=== PATIENT | male | born 1975 | race Caucasian/White ===

== ENCOUNTER 2022-04-10 10:44 | Inpatient (IN) | payer OTHER, SELFPAY ==
[2022-04-10] VITALS (13 sets, daily range): BP systolic 100–173; BP diastolic 68–96; PULSE 0–109; RESP 12–20; TEMP 36.6–37.2; O2SAT 92–97; BMI 29.5
--- NOTE | 2022-04-10 10:54 | ECG_ITS ---
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 Measurements Intervals [place] Rate: 107 P: 43 LA: 131 QRS: 2 QRSD: 130 T: 8 QT: 355 QTc: 474 Interpretive Statements SINUS TACHYCARDIA POSSIBLE LEFT ATRIAL ENLARGEMENT [-0.1mV P-WAVE IN V1/V2] RIGHT BUNDLE BRANCH BLOCK [120+ ms QRS DURATION, UPRIGHT V1, 40+ ms S IN I/aVL/V4/V5/V6] No previous ECG available for comparison Electronically Signed On 04-12-2022 6:28:34 CUSTOM BOOKBINDER by José Penn M.D. [email or web address] Information [employer] & Operations PvtCisivmagr[facility].[email or web address]/store/[id number]
--- NOTE | 2022-04-10 11:01 | W.ED.URI ---
HPI - URI/Sore Throat General: Chief Complaint: Upper Respiratory Infection Stated Complaint: Chest pains Time Seen by Provider: 04/10/22 11:01 History of Present Illness: Mr. Taylor is a 46-year-old gentleman with history of hyperlipidemia presenting to the emergency department due to chest and abdominal pain. He reports this past weekend having cough and GI symptoms however at approximately 1 AM was awoken from sleep with severe right lower chest and right upper quadrant abdominal pain. Since onset symptoms have been severe and constant. Was seen at another ER and chest x-ray was reportedly normal, patient tested positive for flu A, and discharged however symptoms are continued. Denies frequent similar episodes in the past. [place] like his flu symptoms were improved prior to onset of this. No other specific changes in health, exacerbating, or alleviating factors identified. Onset (ago): hour(s) Consistency: constant Severity: severe Context: other Associated symptoms: Reports no associated symptoms Review of Systems General: Reports: 10 or more systems reviewed and unremarkable except in HPI and below PFSH ED PFSH: Medical History HLD (hyperlipidemia) Surgical History No pertinent past surgical history Family History Father Hyperlipidemia Grandmother Hyperlipidemia Hypertension Myocardial infarct Denies family history of Diabetes CAD (coronary artery disease) Clotting disorder Dementia Chronic kidney disease (CKD) Lung disease Cancer Stroke Social History Smoking and tobacco status: never smoked Alcohol intake: never Adopted: No Caregiver/support person: No Lives independently: No Household members: spouse Marital status: service: No Current occupational status: employed Sexually active: Yes Current gender identity: Male Physical Exam Const: COMMON NORMALS: alert GENERAL APPEARANCE: cooperative, well developed, in distress (Discomfort due to pain) and ill appearing (Somewhat) HENMT: COMMON NORMALS: normocephalic and atraumatic HEAD & SCALP: normocephalic and atraumatic THROAT: posterior oropharynx normal Eye: COMMON NORMALS: conjunctivae normal CONJUNCTIVA: Yes conjunctivae normal SCLERA: sclerae normal Neck/C-Spine: COMMON NORMALS: supple GENERAL: Yes trachea midline Resp: COMMON NORMALS: clear to auscultation bilaterally EFFORT & INSPECTION: Yes able to speak in complete sentences AUSCULTATION: clear to auscultation bilaterally Cardio: COMMON NORMALS: regular rhythm RATE: tachycardic RHYTHM: regular rhythm GI: COMMON NORMALS: Soft to palpation PALPATION: Yes Soft to palpation, Yes Tenderness to palpation present (GI), No Guarding due to palpation present (GI) and No Rigid due to palpation Extremity: GENERAL: Yes normal exam except as noted and No edema Neuro: COMMON NORMALS: moves all extremities SENSORIUM/ORIENTATION: Yes alert and No Orientation impaired Psych: COMMON NORMALS: mental status grossly normal and Normal thought process present THOUGHT PROCESS: Normal thought process present Course Vital Signs: Vital signs: Vital Signs Temperature 99 F 04/12/22 10:59 Pulse Rate 99 04/12/22 10:59 Respiratory Rate 28 H 04/12/22 10:59 Blood Pressure 99/66 04/12/22 10:59 Pulse Oximetry 94 04/12/22 10:59 Oxygen Delivery Co thod 04/12/22 08:44 Oxygen Flow Rate 4 04/11/22 20:00 Fraction of Inspir ed Oxygen 40 04/12/22 08:44 MDM - URI/Sore Throat Medical Decision Making 46-year-old gentleman presenting with cough and chest pain. Somewhat ill on clinical appearance. EKG with sinus tachycardia, nonspecific ST segment abnormalities. No STEMI. Labs with no leukocytosis, hemoglobin normal. Metabolic panel with only mild derangement. Initial lactic acid is elevated with improvement on fluid resuscitation. Chest x-ray with right lower lobe infiltrate. Overall appearance x-rays somewhat unimpressive for patient's clinical symptoms including new oxygen requirement. D-dimer was ordered as patient could not be without diagnosis/PERC criteria and was elevated. Therefore CTA ordered. CTA with evidence of pneumonia and adjacent effusion, no PE. During ED course patient given analgesia, antiemetic, aspirin, fluids, antibiotics. Most likely cause of patient symptoms is pneumonia with new oxygen requirement. The results of ED evaluation were discussed with the patient including plan for admission due to requirement for level of care not available if discharged to prevent significant worsening/deterioration. Patient agreeable with plan. Discussed with hospitalist service who was agreeable to admit patient. Medical Records I reviewed the patient's medical records. Lab Data I reviewed the patient's lab results. 04/12/22 01:40 04/12/22 01:40 Radiology Impressions Chest CTA 04/10/22 11:50 IMPRESSION: 1. No evidence of pulmonary embolus. 2. Small RIGHT pleural effusion with patchy nodular infiltrates in the RIGHT lower lobe and RIGHT upper lobe suspicious for pneumonia. 3. No other acute findings. Chest Ultrasound 04/10/22 15:15 IMPRESSION: Very small RIGHT pleural effusion. Chest X-Ray 04/12/22 06:00 IMPRESSION: 1. Extensive, worsening opacity in the right chest likely reflecting consolidation and effusion. 2. Minimal left basilar opacity with probable small left pleural effusion. Laboratory Results WBC 10.0 10^3/uL (4.0-10.0) 04/10/22 11:05 RBC 5.25 10^6/uL (4.1-5.3) 04/10/22 11:05 Hgb 15.3 g/dL (11.7-16.6) 04/10/22 11:05 Hct 45.8 % (42.0-52.0) 04/10/22 11:05 MCV 87.2 fl (80-94) 04/10/22 11:05 MCH 29.1 pg (28.0-34.0) 04/10/22 11:05 MCHC 33.4 g/dL (30.0-36.0) 04/10/22 11:05 RDW 12.9 % (12.1-15.1) 04/10/22 11:05 Plt Count 259 10^3/cmm (130-400) 04/10/22 11:05 MPV 10.6 fL (7.4-10.4) H 04/10/22 11:05 Neut % (Auto) 81.7 % 04/10/22 11:05 Lymph % (Auto) 10.4 % 04/10/22 11:05 Van Zandt % (Auto) 7.6 % 04/10/22 11:05 Eos % (Auto) 0.0 % 04/10/22 11:05 Baso % (Auto) 0.2 % 04/10/22 11:05 Neut # (Auto) 8.18 10^3/uL (1.8-7.7) H 04/10/22 11:05 Lymph # (Auto) 1.0 10^3/uL (0.8-4.8) 04/10/22 11:05 [place] Zandt # (Auto) 0.8 10^3/uL (0.2-0.9) 04/10/22 11:05 Eos # (Auto) 0.0 10^3/uL (0.0-0.8) 04/10/22 11:05 Baso # (Auto) 0.0 10^3/uL (0.0-0.1) 04/10/22 11:05 Nucleated RBC % (auto) 0 % 04/10/22 11:05 Nucleated RBCs # 0.0 /100WBC 04/10/22 11:05 ESR 14 mm/hr (0-10) H 04/10/22 11:05 D-Dimer 1.02 ug/mIFEU (0-0.59) H 04/10/22 11:05 Sodium 138 mmol/L (136-145) 04/10/22 11:05 Potassium 4.2 mmol/L (3.5-5.1) 04/10/22 11:05 Chloride 99 mmol/L (98-107) 04/10/22 11:05 Carbon Dioxide 24 mmol/L (22-29) 04/10/22 11:05 Anion Gap 19.2 (5-19) H 04/10/22 11:05 BUN 15 mg/dL (6-20) 04/10/22 11:05 Creatinine 1.1 mg/dL (0.7-1.2) 04/10/22 11:05 GFR Calculation 71.4 mL/min (90-130) L 04/10/22 11:05 Glucose 133 mg/dL (65-115) H 04/10/22 11:05 Estimat Average Glucose 94 04/10/22 11:05 Hemoglobin A1c 4.9 % (4.0-6.0) 04/10/22 11:05 Calculated Osmolality 289 mOsm/kg (285-295) 04/10/22 11:05 Lactic Acid 3.4 mmol/L (0.5-2.2) H 04/10/22 11:05 Lactic Acid (Sepsis) 2.6 mmol/L (0.5-2.2) H 04/10/22 16:30 Calcium 8.7 mg/dL (8.5-10.5) 04/10/22 11:05 Total Bilirubin 0.7 mg/dL (0.15-1.2) 04/10/22 11:05 AST 22 U/L (0-40) 04/10/22 11:05 ALT 23 U/L (0-41) 04/10/22 11:05 Alkaline Phosphatase 86 U/L (40-130) 04/10/22 11:05 Creatine Kinase 123 U/L (39-308) 04/10/22 11:05 Troponin T Baseline 8 ng/L (0-15) 04/10/22 11:05 Troponin T 120 Minute 8.47 ng/L (0-15) 04/10/22 13:12 Delta Troponin T 0.10 ABS# (0-10) 04/10/22 13:12 Troponin T Hi Sens 6Hr 10.02 ng/L (0-15) 04/10/22 16:30 Troponin T Hi Sens 6Hr Delta 2.02 ng/L (0-12) 04/10/22 16:30 NT-Pro-B Natriuret Pep 461 pg/mL (0-125) H 04/10/22 11:05 Total Protein 6.9 g/dL (6.6-8.7) 04/10/22 11:05 Albumin 4.2 g/dL (3.5-5.2) 04/10/22 11:05 Globulin 2.7 g/dL (1.3-4.6) 04/10/22 11:05 Lipase 22 U/L (13-60) 04/10/22 11:05 Procalcitonin 5.12 ng/mL (0-0.5) H 04/10/22 11:05 TSH 0.87 uIU/mL (0.27-4.20) 04/10/22 11:05 Urine Color Yellow (Yellow) 04/10/22 13:30 Urine Appearance Clear (CLEAR) 04/10/22 13:30 Urine pH 6.5 (5-7) 04/10/22 13:30 Ur Specific Pyatt 1.005 (1.005-1.030) 04/10/22 13:30 Urine Protein 1+ (Negative) H 04/10/22 13:30 Urine Glucose (UA) Norm (Normal) 04/10/22 13:30 Urine Ketones 1+ (Negative) H 04/10/22 13:30 Urine Blood Trace (Negative) H 04/10/22 13:30 Urine Nitrate Negative (Negative) 04/10/22 13:30 Urine Bilirubin 1+ (Negative) H 04/10/22 13:30 Urine Urobilinogen Norm mg/dL (Negative) 04/10/22 13:30 Ur Leukocyte Esterase Trace (Negative) H 04/10/22 13:30 Urine RBC 0-4 /hpf (0-2) H 04/10/22 13:30 Urine WBC 0-4 /hpf (0-5) H 04/10/22 13:30 Ur Squamous Epith Cells 0-4 /hpf (0-5) H 04/10/22 13:30 Amorphous Sediment Not Reportable 04/10/22 13:30 Urine Bacteria None /hpf (NONE) 04/10/22 13:30 Coronavirus 229E (PCR) Not detected (NOT DETECT) 04/10/22 13:50 Influenza Type A Ag positive (Negative) 04/10/22 14:45 Influenza Type B Ag negative (Negative) 04/10/22 14:45 SARS-CoV-2 (PCR) Not detected (NOT DETECT) 04/10/22 13:50 Discharge Plan Discharge Patient Disposition: Admitted As Inpatient Admit Provider: Homero Cobos Clinical Impression: Pneumonia, Hypoxia, Parapneumonic effusion, Influenza A, Abnormal ECG Condition: Stable Coding Level of Care Code ED Sole Sewer Hand for Chg Fwd Exam Comprehensive
--- NOTE | 2022-04-10 11:08 | XR_ITS ---
WS: [id number] Exam: XR chest 1V portable [id number] Date/Time of Exam: 04/10/2022 11:14 AM Reason For Exam: RL cp No prior exams. There is infiltrate and atelectasis in the right lower lobe. Remaining lung zones are clear. No obvio us pleural effusion. Unremarkable cardiomediastinal silhouette. Bony elements are intact. XR/XR chest 1V portable [id number] IMPRESSION: 1. Right lower lobe infiltrate and atelectasis.
[2022-04-10 11:16] LABS: Basophils % 0.2 %; Hematocrit 45.8 % (42.0-52.0); Hemoglobin 15.3 g/dL (11.7-16.6); Lymphocytes % 10.4 %; Mean Corpuscular HGB Conc 33.4 g/dL (30.0-36.0); Mean Corpuscular Hemoglobin 29.1 pg (28.0-34.0); Mean Corpuscular Volume 87.2 fl (80-94); Mean Platelet Volume 10.6 fL (7.4-10.4); Monocytes # 0.8 10^3/uL (0.2-0.9); Monocytes % 7.6 %; Neutrophils # 8.18 10^3/uL (1.8-7.7); Neutrophils % 81.7 %; Nucleated Red Blood Cells % 0 %; Platelet Count 259 10^3/cmm (130-400); Red Blood Count 5.25 10^6/uL (4.1-5.3); Red Cell Distribution Width 12.9 % (12.1-15.1)
[2022-04-10] MEDS: aspirin 81 mg Chew Tablet 324 MG PO (11:18)
[2022-04-10] MEDS: ondansetron 2 mg/ML SDV 2 mL 4 MG IVP (11:19)
[2022-04-10] MEDS: morphine 4 mg/mL SDV 1 mL IVP ×2 (11:19→14:35)
[2022-04-10] MEDS: sodium chloride 0.9% 1,000 ML 999 ML IV (11:23)
[2022-04-10 11:28] LABS: Slide Review Slide Review Perform
[2022-04-10 11:36] LABS: D Dimer 1.02 ug/mIFEU (0-0.59)
[2022-04-10 11:40] LABS: Troponin(5th) Baseline 8 ng/L (0-15)
[2022-04-10 11:43] LABS: Alanine Aminotransferase 23 U/L (0-41); Albumin Level 4.2 g/dL (3.5-5.2); Alkaline Phosphatase 86 U/L (40-130); Anion Gap 19.2 (5-19); Aspartate Amino Transferase 22 U/L (0-40); Blood Urea Nitrogen 15 mg/dL (6-20); Calcium 8.7 mg/dL (8.5-10.5); Carbon Dioxide 24 mmol/L (22-29); Chloride 99 mmol/L (98-107); Globulin 2.7 g/dL (1.3-4.6); Glomerular Filtration Rate 71.4 mL/min (90-130); Glucose 133 mg/dL (65-115); Lipase 22 U/L (13-60); Osmolality Calculated 289 mOsm/kg (285-295); Potassium 4.2 mmol/L (3.5-5.1); Sodium 138 mmol/L (136-145); Total Bilirubin 0.7 mg/dL (0.15-1.2); Total Protein 6.9 g/dL (6.6-8.7)
--- NOTE | 2022-04-10 11:50 | CT_ITS ---
WS: [id number] CTA OF THE CHEST WITH PULMONARY EMBOLISM PROTOCOL TECHNIQUE: High-resolution contrast enhanced CTA of the chest with coronal and sagittal reformatted i mages with pulmonary embolism protocol. MIP images are also reviewed. CLINICAL INFORMATION: Right lower CP, elevated ddimer COMPARISON: None. DLP: 392.[address] scans at [facility] use at least one of these dose optimization techniques: automated e xposure control; mA and/or kV adjustment per patient size (includes targeted exams where dose is matc hed to clinical indication); or iterative reconstruction. FINDINGS: Small RIGHT pleural effusion. Compressive atelectasis in the RIGHT lower lobe. Subsegmental atelectas is in both lung bases. Patchy nodular groundglass infiltrates in the RIGHT lower lobe and RIGHT upper lobe along the hilum suspicious for pneumonia. LEFT upper lobe is well aerated. Proximal main pulmonary arteries are normal. Normal segmental and subsegmental pulmonary arteries. No evidence of pulmonary embolus. Normal caliber thoracic aorta. No mediastinal or hilar lymphadenopathy. Adrenal glands are normal. Small esophageal hiatal hernia. CT/CT angio chest PE protcl [id number] IMPRESSION: 1. No evidence of pulmonary embolus. 2. Small RIGHT pleural effusion with patchy nodular infiltrates in the RIGHT l ower lobe and RIGHT upper lobe suspicious for pneumonia. 3. No other acute findings.
[2022-04-10 12:10] LABS: Procalcitonin 5.12 ng/mL (0-0.5)
[2022-04-10] MEDS: iohexol 350 mg/mL 500 mL Btl (per mL) IV (12:29)
[2022-04-10] MEDS: acetaminophen 500 mg Tablet 1000 MG PO (12:30)
[2022-04-10] MEDS: ketorolac 30 mg/mL INJ 15 MG IVP (12:31)
--- NOTE | 2022-04-10 12:43 | ECG_ITS ---
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 Measurements Intervals [place] Rate: 86 P: 43 W[place]: 142 QRS: 21 QRSD: 135 T: 12 QT: 373 QTc: 446 Interpretive Statements SINUS RHYTHM RIGHT BUNDLE BRANCH BLOCK [120+ ms QRS DURATION, UPRIGHT V1, 40+ ms S IN I/aVL/V4/V5/V6] Compared to ECG 04/10/2022 10:54:48 Sinus tachycardia no longer present Electronically Signed On 04-12-2022 6:35:42 GOSPEL SINGER by José Penn M.D. [id number]
[2022-04-10 13:46] LABS: Troponin 5 2HR 8.47 ng/L (0-15)
[2022-04-10] MEDS: cefTRIAXone 1,000 MG in sodium chloride 0.9% (plus) 50 ML 100 MG IV (14:18)
[2022-04-10] MEDS: doxycycline 100 MG in sodium chloride 0.9% (plus) 100 ML IV (14:40)
[2022-04-10 14:50] LABS: Add Urine Microscopic? YES; Bilirubin Urine 1+ (Negative); Blood Urine Trace (Negative); Glucose Urine UA Norm (Normal); Ketones Urine 1+ (Negative); Leukocyte Esterase Urine Trace (Negative); Nitrate Urine Negative (Negative); Protein Urine 1+ (Negative); Specific Gravity, Urine 1.005 (1.005-1.030); Urine Appearance Clear (CLEAR); Urine Color Yellow (Yellow); Urobilinogen Urine Norm (Negative); pH Urine 6.5 (5-7)
[2022-04-10 14:51] LABS: Add Urine Culture? No; RBC Urine 0-4 /hpf (0-2); Squamous Epithelial Cell Urine 0-4 /hpf (0-5); WBC Urine 0-4 /hpf (0-5)
[2022-04-10 15:03] LABS: Influenza A by IFA positive (Negative); Influenza B by IFA negative (Negative)
--- NOTE | 2022-04-10 15:15 | US_ITS ---
WS: [id number] Ultrasound chest. HISTORY: Pleural effusion. Very small RIGHT pleural effusion. There are a few low-level echoes present suggesting internal debri s. US/US chest [id number] IMPRESSION: Very small RIGHT pleural effusion.
--- NOTE | 2022-04-10 15:17 | PM.HP ---
Providers/Chief Complaint Primary Care Provider: Kasia Anderson MD Chief Complaint: Chest pains History of Present Illness Mian Taylor is a 46 year old male with a past medical history of hyperlipidemia, who presents to [facility] due to fatigue, malaise, cough since Friday. 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 He presented to another ER where he tested positive for flu a discharged without any medications. However he continued to have shortness of breath, chest pain, pleurisy, pain with taking deep breath in, fatigue, malaise, poor appetite. Review of Systems Const: Reports: fever(s), chills, body aches, fatigue and malaise Card: Reports: chest pain Resp: Reports: dyspnea and non-productive cough Medications/Allergies Home Medications Medication Instructions Recorded Confirmed Last Taken Type rosuvastatin 10 mg tablet 10 mg PO QPM 04/10/22 04/10/22 04/09/22 History Allergies Allergy/AdvReac Type Severity Reaction Status Date / Time No Known Allergies Allergy Verified 04/10/22 11:28 PFSH Acute PFSH: Medical History HLD (hyperlipidemia) Surgical History No pertinent past surgical history Family History Father Hyperlipidemia Grandmother Hyperlipidemia Hypertension Myocardial infarct Denies family history of Diabetes CAD (coronary artery disease) Clotting disorder Dementia Chronic kidney disease (CKD) Lung disease Cancer Stroke Social History Smoking and tobacco status: never smoked Alcohol intake: never Adopted: No Caregiver/support person: No Lives independently: No Household members: spouse Marital status: service: No Current occupational status: employed Sexually active: Yes Current gender identity: Male Vitals/I&O/Wt Last Vital Signs Temp 98.3 F 04/10/22 14:52 Pulse 88 04/10/22 13:35 Resp 18 04/10/22 14:35 BP 114/88 04/10/22 13:46 Pulse Ox 92 04/10/22 14:35 O2 Del Method 04/10/22 13:46 O2 Flow Rate 1 04/10/22 13:46 04/10/22 04/10/22 04/10/22 06:59 14:59 22:59 Intake Total 1000 / 1000 50 / 1050 Balance 1000 / 1000 50 / 1050 Weight last 48 hrs Weight 90.718 kg Physical Exam Const: COMMON NORMALS: no acute distress and patient oriented x3 HENMT: COMMON NORMALS: normocephalic HEAD & SCALP: normocephalic Eye: COMMON NORMALS: Equal, round and reactive pupils present and EOMs intact bilaterally Neck/C-Spine: COMMON NORMALS: no JVD Resp: COMMON NORMALS: normal respiratory effort, No retractions, No use of accessory muscles and clear to auscultation bilaterally AUSCULTATION: crackles and wheezes Cardio: COMMON NORMALS: no JVD, regular rate, regular rhythm, S1 normal heart sound present and S2 normal heart sound present RATE: regular rate RHYTHM: regular rhythm HEART SOUNDS: S1 normal heart sound present and S2 normal heart sound present GI: COMMON NORMALS: Normal to inspection, nondistended, normoactive bowel sounds present, Soft to palpation, non-tender, No hepatosplenomegaly present, no masses and no bruits PALPATION: Yes Soft to palpation and Yes No hepatosplenomegaly present Extremity: COMMON NORMALS: capillary refill normal, no clubbing, cyanosis or edema, no calf tenderness and no pedal edema Neuro: COMMON NORMALS: patient oriented x3, CN's II-XII intact bilaterally, moves all extremities and no focal motor deficits Psych: COMMON NORMALS: mental status grossly normal Data 04/10/22 11:05 04/10/22 11:05 Micro: Microbiology 04/10/22 14:26 Blood Culture - Preliminary Blood SPECIMEN COLLECTED 04/10/22 14:12 Blood Culture - Preliminary Blood SPECIMEN COLLECTED A&P Assessment and plan (1) Parapneumonic effusion: (2) Pneumonia: (3) Hypoxia: (4) Influenza A: (5) Pleurisy with effusion: Plan Pneumonia, pneumonic effusion, influenza a -ct angio of the chest Small RIGHT pleural effusion. Compressive atelectasis in the RIGHT lower lobe. Subsegmental atelectasis in both lung bases. Patchy nodular groundglass infiltrates in the RIGHT lower lobe and RIGHT upper lobe along the hilum suspicious for pneumonia. LEFT upper lobe is well aerated. PLAN: -admit to med surg -start tamiflu -Rocephin and azithromycin -blood culutre, sputum culture, bacterial antigen -duoneb treatment -monitor respiratory status -incentive spriometer and flutter valve -full code -lovenox for dvt ppx Attestations Medical Necessity Statement*: patient requires hospitalization for influenzae a, pneumonia, parapneumonic effusion, pleurisy, inpatient, greater than 2 midnights Coding Level of Care Code Acute Associate Director Of Biostatistics for [facility] Diagnoses Parapneumonic effusion J18.9; J91.8 Pneumonia J18.9 Hypoxia R09.02 Influenza A J10.1 Pleurisy with effusion J90
[2022-04-10 15:25] LABS: Erythrocyte Sedimentation Rate 14 mm/hr (0-10)
[2022-04-10 15:40] LABS: Lactic Sepsis W/Reflex 3.4 mmol/L (0.5-2.2)
[2022-04-10 15:49] LABS: Creatine Phosphokinase 123 U/L (39-308); NT Pro B Type Natriuretic Pept 461 pg/mL (0-125)
[2022-04-10 16:09] LABS: Adenovirus Not Detected (NOT DETECT); Chlamydia Pneumoniae Not Detected (NOT DETECT); Coronavirus 229E,HKU1,NL63,OC4 Not Detected (NOT DETECT); Human Metapneumovirus Not Detected (NOT DETECT); Human Rhinovirus/Enterovirus Not Detected (NOT DETECT); Influenza A Not Detected (NOT DETECT); Influenza A H1 Not Detected (NOT DETECT); Influenza A H1-2009 Not Detected (NOT DETECT); Influenza A H3 Not Detected (NOT DETECT); Influenza B Not Detected (NOT DETECT); Mycoplasma Pneumoniae Not Detected (NOT DETECT); Parainfluenza Virus Type 1 Not Detected (NOT DETECT); Parainfluenza Virus Type 2 Not Detected (NOT DETECT); Parainfluenza Virus Type 3 Not Detected (NOT DETECT); Parainfluenza Virus Type 4 Not Detected (NOT DETECT); Respiratory Syncytial Virus A Not Detected (NOT DETECT); Respiratory Syncytial Virus B Not Detected (NOT DETECT); SARS-COV-2 Not Detected (NOT DETECT)
[2022-04-10] MEDS: sodium chloride 0.9% 1,000 ML 50 ML IV (17:06)
[2022-04-10] MEDS: azithromycin 500 MG in sodium chloride 0.9% 250 ML 250 MG IV (17:06)
[2022-04-10] MEDS: enoxaparin 40 mg/0.4 mL Syringe SUBCUT (17:07)
[2022-04-10] MEDS: oseltamivir phosphate 75 mg Capsule PO (17:07)
[2022-04-10] MEDS: pantoprazole 40 mg SDV IVP (17:07)
[2022-04-10 17:10] LABS: Troponin 5 6HR 10.02 ng/L (0-15)
[2022-04-10 17:13] LABS: Reflex Lactate Order REFLEX LACTIC ORDERD
[2022-04-10 17:36] LABS: Troponin 5 6HR Delta 2.02 ng/L (0-12)
[2022-04-10 17:40] LABS: Lactic Acid level (Lactate) 2.6 mmol/L (0.5-2.2)
[2022-04-10 18:12] LABS: Thyroid Stimulating Hormone 0.87 uIU/mL (0.27-4.20)
--- NOTE | 2022-04-10 18:25 | ECG_ITS ---
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 Measurements Intervals [place] Rate: 95 P: 43 AK: 146 QRS: 20 QRSD: 132 T: 26 QT: 340 QTc: 428 Interpretive Statements SINUS RHYTHM RIGHT BUNDLE BRANCH BLOCK [120+ ms QRS DURATION, UPRIGHT V1, 40+ ms S IN I/aVL/V4/V5/V6] Compared to ECG 04/10/2022 12:43:21 No significant changes Electronically Signed On 04-12-2022 6:33:49 DAIRY EQUIPMENT SPECIALIST by José Penn M.D. [id number]
[2022-04-10 18:51] LABS: Estmated Average Glucose 94; Hemoglobin A1C 4.9 % (4.0-6.0)
[2022-04-10] MEDS: ipratropium-albuterol 3 mL Neb INHALATION (20:53)
[2022-04-10] MEDS: oxyCODONE-APAP 5-325 mg Tablet 1 TAB PO (21:44)
[2022-04-11] VITALS (24 sets, daily range): BP systolic 103–128; BP diastolic 68–83; PULSE 98–115; RESP 16–30; TEMP 36.8–38.6; O2SAT 90–97; BMI 29.7
[2022-04-11] MEDS: acetaminophen 325 mg Tablet 650 MG PO (04:34)
[2022-04-11] MEDS: oseltamivir phosphate 75 mg Capsule PO ×2 (04:35→17:46)
[2022-04-11 05:45] LABS: Basophils % 0.3 %; Hematocrit 40.8 % (42.0-52.0); Hemoglobin 13.8 g/dL (11.7-16.6); Lymphocytes # 0.9 10^3/uL (0.8-4.8); Lymphocytes % 23.2 %; Mean Corpuscular HGB Conc 33.8 g/dL (30.0-36.0); Mean Corpuscular Hemoglobin 29.6 pg (28.0-34.0); Mean Corpuscular Volume 87.4 fl (80-94); Mean Platelet Volume 11.1 fL (7.4-10.4); Monocytes # 0.3 10^3/uL (0.2-0.9); Monocytes % 8.9 %; Neutrophils # 2.48 10^3/uL (1.8-7.7); Neutrophils % 64.5 %; Nucleated Red Blood Cells % 0 %; Platelet Count 190 10^3/cmm (130-400); Red Blood Count 4.67 10^6/uL (4.1-5.3); Red Cell Distribution Width 13.3 % (12.1-15.1); White Blood Count 3.8 10^3/uL (4.0-10.0)
[2022-04-11 06:09] LABS: Blood Urea Nitrogen 17 mg/dL (6-20); Calcium 8.2 mg/dL (8.5-10.5); Carbon Dioxide 22 mmol/L (22-29); Chloride 98 mmol/L (98-107); Glomerular Filtration Rate 71.4 mL/min (90-130); Glucose 103 mg/dL (65-115); Osmolality Calculated 278 mOsm/kg (285-295); Sodium 133 mmol/L (136-145)
[2022-04-11] MEDS: ipratropium-albuterol 3 mL Neb INHALATION ×5 (08:14→23:13)
--- NOTE | 2022-04-11 08:20 | ECG_ITS ---
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 Measurements Intervals [place] Rate: 96 P: 47 CA: 144 QRS: 13 QRSD: 137 T: 18 QT: 346 QTc: 438 Interpretive Statements SINUS RHYTHM POSSIBLE LEFT ATRIAL ENLARGEMENT [-0.1mV P-WAVE IN V1/V2] RIGHT BUNDLE BRANCH BLOCK [120+ ms QRS DURATION, UPRIGHT V1, 40+ ms S IN I/aVL/V4/V5/V6] Compared to ECG 04/10/2022 18:25:45 No significant changes Electronically Signed On 04-12-2022 6:26:50 HEATING AND VENTILATING WORKER by José Penn M.D. [id number]
--- NOTE | 2022-04-11 10:03 | P.PN_ITS ---
Subjective Subjective: Patient was seen this morning, he feels a lot better, he did have 1 fever overnight, still has a cough, still has fatigue, malaise, his right pleuritic chest pain has significantly improved, still some pleuritic-like pain with coughing but overall improved, no more pulling sensation Vitals/I&O/Wt Last Vital Signs Temp 98.4 F 04/11/22 07:56 Pulse 98 04/11/22 08:20 Resp 18 04/11/22 08:18 BP 110/72 04/11/22 07:56 Pulse Ox 92 04/11/22 08:18 O2 Del Method 04/11/22 08:18 O2 Flow Rate 2 04/11/22 08:18 04/10/22 04/11/22 04/11/22 22:59 06:59 14:59 Intake Total 1140 / 2140 120 / 120 Output Total 250 / 250 Balance 1140 / 2140 -250 / 1890 120 / 120 Weight last 48 hrs Weight 90.718 kg Weight 90.718 kg Physical Exam Const: COMMON NORMALS: no acute distress and patient oriented x3 Resp: COMMON NORMALS: normal respiratory effort, No retractions and No use of accessory muscles AUSCULTATION: wheezes Cardio: COMMON NORMALS: regular rate, regular rhythm, S1 normal heart sound present and S2 normal heart sound present RATE: regular rate RHYTHM: regular rhythm HEART SOUNDS: S1 normal heart sound present and S2 normal heart sound present GI: COMMON NORMALS: Normal to inspection, nondistended, normoactive bowel sounds present and non-tender Extremity: COMMON NORMALS: no pedal edema Neuro: COMMON NORMALS: patient oriented x3 Psych: COMMON NORMALS: mental status grossly normal Data 04/11/22 05:25 04/11/22 05:25 Micro: Microbiology 04/10/22 13:30 Bacterial Antigens - Final Urine,Clean Catch 04/10/22 14:26 Blood Culture - Preliminary Blood SPECIMEN COLLECTED 04/10/22 14:12 Blood Culture - Preliminary Blood SPECIMEN COLLECTED A&P Assessment and plan (1) Parapneumonic effusion: (2) Pneumonia: (3) Hypoxia: (4) Influenza A: (5) Pleurisy with effusion: Plan Pneumonia, pneumonic effusion, influenza a -ct angio of the chest Small RIGHT pleural effusion. Compressive atelectasis in the RIGHT lower lobe. Subsegmental atelectasis in both lung bases. Patchy nodular groundglass infiltrates in the RIGHT lower lobe and RIGHT upper lobe along the hilum suspicious for pneumonia. LEFT upper lobe is well aerated. PLAN: -admit to med surg -start tamiflu -Rocephin and azithromycin -blood culutre, sputum culture, bacterial antigen -duoneb treatment -monitor respiratory status -incentive spriometer and flutter valve -Ultrasound of chest shows right pleural effusion very minimal, few low-level echoes suggesting internal debris, however patient has clinical history improved, his pleurisy on the right has improved. So we will monitor. I advised patient that we will have to continue to monitor this, but it is fairly unlikely to be an empyema. But if he continues to have pain or if it comes back he has fevers or changes in his status then we will need to do an ultrasound and pursue sampling as an empyema will need to be drained. He boisterously, all questions answered -full code -lovenox for dvt ppx Attestations Medical Necessity Statement*: Patient requires hospitalization, for influenza A, pneumonia Coding Level of Care Code Acute Roller Print Tender for [facility] Diagnoses Parapneumonic effusion J18.9; J91.8 Pneumonia J18.9 Hypoxia R09.02 Influenza A J10.1 Pleurisy with effusion J90
--- NOTE | 2022-04-11 13:00 | PC.CHAP ---
Pastoral Care Encounter/Spiritual Assessment Type of Contact [] Declined pinsetter mechanic automatic visit [] Patient/Family/Request visit [] Outpatient visit [] Follow-up visit [] Physician referral [] Code/Alert [x] Routine visit [] Staff referral [] Actively dying [] Patient sleeping [] Family support [] [] Out of room [] Palliative care [] [x] Receiving care in room [] Pre-surgical visit [] Trauma [] Long length of stay [] ICU visit [x] Other: Isolation Relational/Emotional Strength [] Patient feels connected with others/family/visitors/staff [] Distress [] Loneliness/isolation [] Abandonment Spirituality of Patient [] Person of Lupe [] Attends Muslim of their Lupe [] Believes in Prayer [] Reads Bible or Mosque materials [] There are Spiritual issues to be addressed Miter Grinder Operator Interventions [] Prayer [] Active listening [] Non-anxious presence [] Spiritual/emotional support [] Crisis/trauma care [] Spiritual counseling [] Bereavement support [] Provided bereavement packet [] Provided Bible/devotional materials [] Provided toy/stuffed animal, coloring book to patient or family member [] Provided Communion [] Anointing/[place] [] Salvation [] Completed spiritual assessment [] Other: Impact on Illness or Injury [] Angry [] Fearful [] Anxious [] Often cries [] Exhaustion [] Unable to work [] Unable to attend mosque [] Unable to walk/stand [] Unable to read [] Unable to drive [] Unable to eat/drink [] Unable to sleep [] Unable to be with family [] Patient intubated [] Other: Summary Isolation Time spent with patient 5 mins
[2022-04-11] MEDS: cefTRIAXone 1,000 MG in sodium chloride 0.9% (plus) 50 ML 100 MG IV (15:31)
[2022-04-11] MEDS: sodium chloride 0.9% 1,000 ML 50 ML IV ×2 (15:31→22:12)
[2022-04-11] MEDS: oxyCODONE-APAP 5-325 mg Tablet 1 TAB PO (15:59)
[2022-04-11] MEDS: enoxaparin 40 mg/0.4 mL Syringe SUBCUT (17:01)
[2022-04-11] MEDS: pantoprazole 40 mg SDV IVP (17:01)
[2022-04-11] MEDS: azithromycin 500 MG in sodium chloride 0.9% 250 ML 250 MG IV (17:02)
--- NOTE | 2022-04-11 20:36 | XRR_ITS ---
PROCEDURE INFORMATION: Exam: XR Chest Exam date and time: 04/11/2022 8:46 PM Age: 46 years old Clinical indication: Fever and shortness of breath; Additional info: Absent breath sounds right TECHNIQUE: Imaging protocol: Radiologic exam of the chest. Views: 1 view. COMPARISON: CR XR chest 1V portable [id number] 04/10/2022 12:23 PM FINDINGS: Lungs: Increasing compressive atelectasis in the right upper lobe and to a greater extent the right middle and lower lobes, underlying pneumonia cannot be ruled out. There is also increasing atelectasis/pneumonia in the left lower lobe. Pleural spaces: Large right pleural effusion, increased in size. No pneumothorax. Heart/Mediastinum: Stable mild enlargement of the cardiac silhouette. Bones/joints: Unremarkable for age. XR/XR chest 1V portable [id number] IMPRESSION: 1. Large right pleural effusion, increased in size. 2. Increasing compressive atelectasis in the right upper lobe and to a greater extent the right middle and lower lobes, underlying pneumonia cannot be ruled out. There is also increasing atelectasis/pneumonia in the left lower lobe. Recommend followup chest imaging to insure resolution of these findings. 3. Incidental/nonacute findings are listed in the report.
[2022-04-11 21:12] LABS: ABG PCO2 33.1 mmHg (35-45); ABG PH Result 7.47 (7.35-7.45); Alveolar-Arterial Oxygen Gradi 3.9 mmHg (5-10); Arterial Blood Gas Hematocrit 42.9 % (42-52); Base Excess ABG 1.1 mmol/L (-2.0-2.0); Blood Gas Allen Test Pos; Blood Gas Operator Identificat JB; Blood Gas Sample Site Radial, right; Blood Gas Sample Type Arterial; Carboxyhemoglobin 0.9 %THgb (0.4-20.1); HCO3 ABG 24.1 mmol/L (22-26); HGB O2 Sat 95.9 % (95-100); Ionized Calcium Level - ABG 1.1 mmol/L (1.1-1.4); Methemoglobin 0.6 % (0.4-1.5); Oxygen Device NC; Oxygen Saturation ABG 97.4; PO2 ABG 79.5 mmHg (80.0-100.0); Potassium Level - ABG 3.8 mmol/L (3.5-5.0)
--- NOTE | 2022-04-11 22:32 | PC.PHAR ---
Pharmacokinetic dosing service Date: 04/11/22 Time: 2229 Objective: Patient: Mian Taylor Floor: ICU-4 Age: 46 yo Serum creatinine: 1.1 mg/dL Height: 69.0 Inches Weight (kg): 90.718 Diagnosis: Relevant medical/social history: Cultures and sensitivities: Other labs: Assessment: IBW (kg): 70.70 Dosing wt(kg): 90.718 Estimated Creatinine clearance (ml/min): 82.1 CRCL method: Cockcroft and Gault using ibw(default). Drug selected: Vancomycin Loading dose (mg): 0 Vd (liters): 81.6 (factor used: 0.9 L/kg) Sampson (hr-1): 0.073 Half life (hrs): 9.50 Recommended dose: 1500 mg Interval: 12 hrs Infusion time (hrs): 1.5 Predicted peak (mcg/mL): 29.8 Predicted trough (mcg/mL): 13.85 Total body weight is being used for vancomycin dosing. Renal function is stable [ ] /unstable [ ] Recommendations: Give Vancomycin 1500 mg q 12 hrs with an expected Cpeak of 29.8 mcg/ml and an expected Ctrough of 13.85 mcg/ml Renal dosing of other antibiotics (review renal dosing of other medications and list guidelines here): Thank you for the consult, will continue to follow. Signature: Jayla Cooper [facility]
[2022-04-11] MEDS: vancomycin 1,500 MG/300 ML PIGGYBACK 200 MG IV (23:11)
[2022-04-11] MEDS: acetylcysteine 200 mg/mL SDV 4 mL INHALATION (23:13)
[2022-04-12] VITALS (30 sets, daily range): BP systolic 99–119; BP diastolic 66–85; PULSE 91–113; RESP 15–38; TEMP 37.2–37.9; O2SAT 93–98
[2022-04-12 01:49] LABS: Basophils % 0.1 %; Hematocrit 40.1 % (42.0-52.0); Lymphocytes # 1.2 10^3/uL (0.8-4.8); Lymphocytes % 8.4 %; Mean Corpuscular HGB Conc 32.4 g/dL (30.0-36.0); Mean Corpuscular Volume 89.5 fl (80-94); Monocytes # 0.7 10^3/uL (0.2-0.9); Monocytes % 4.6 %; Neutrophils # 12.45 10^3/uL (1.8-7.7); Neutrophils % 86.6 %; Nucleated Red Blood Cells % 0 %; Platelet Count 179 10^3/cmm (130-400); Red Blood Count 4.48 10^6/uL (4.1-5.3); Red Cell Distribution Width 13.2 % (12.1-15.1); White Blood Count 14.4 10^3/uL (4.0-10.0)
[2022-04-12 02:05] LABS: INR 1.15 (0.8-1.2)
[2022-04-12 02:14] LABS: Anion Gap 16.4 (5-19); Blood Urea Nitrogen 22 mg/dL (6-20); Calcium 8.5 mg/dL (8.5-10.5); Carbon Dioxide 25 mmol/L (22-29); Chloride 96 mmol/L (98-107); Creatinine Clr Calc Pharmacy 91.6385; Glomerular Filtration Rate 71.4 mL/min (90-130); Glucose 111 mg/dL (65-115); Osmolality Calculated 280 mOsm/kg (285-295); Potassium 4.4 mmol/L (3.5-5.1); Sodium 133 mmol/L (136-145)
[2022-04-12 02:20] LABS: Procalcitonin 6.36 ng/mL (0-0.5)
[2022-04-12 02:33] LABS: C Reactive Protein 432.2 mg/L (0.0-4.9)
[2022-04-12] MEDS: oxyCODONE-APAP 5-325 mg Tablet 1 TAB PO ×2 (03:06→08:05)
[2022-04-12] MEDS: ipratropium-albuterol 3 mL Neb INHALATION ×2 (03:21→08:41)
[2022-04-12] MEDS: acetylcysteine 200 mg/mL SDV 4 mL INHALATION ×2 (03:21→08:41)
[2022-04-12] MEDS: oseltamivir phosphate 75 mg Capsule PO (04:12)
--- NOTE | 2022-04-12 06:00 | XRR_ITS ---
PROCEDURE INFORMATION: Exam: XR Chest Exam date and time: 04/12/2022 6:44 AM Age: 46 years old Clinical indication: Dyspnea. Follow up mucus plugging TECHNIQUE: Imaging protocol: Radiologic exam of the chest. Views: 1 view. COMPARISON: CR (CHEST, ) 04/11/2022 8:46 PM FINDINGS: Lungs: Extensive, worsening opacity in the right chest likely reflecting consolidation and effusion. Pleural spaces: Minimal left basilar opacity with probable small left pleural effusion. No pleural effusion. No pneumothorax. Heart/Mediastinum: The cardiac silhouette is unchanged. No gross evidence of pneumomediastinum. Bones/joints: No gross fracture. XR/XR chest 1V portable [id number] IMPRESSION: 1. Extensive, worsening opacity in the right chest likely reflecting consolidation and effusion. 2. Minimal left basilar opacity with probable small left pleural effusion.
--- NOTE | 2022-04-12 07:57 | P.TS_ITS ---
Transfer Summary Providers Date of Admission: 04/10/22 13:40 Date of Discharge/Transfer: 04/12/22 Attending Provider at Admission: Homero Cobos MD Attending Provider at Transfer: Homero Cobos MD Primary Care Provider: Kasia Anderson MD Transfer Plans: Anticipated date of transfer: 04/12/22 . Diagnoses at Discharge Discharge Diagnosis (1) Parapneumonic effusion: Status: Acute (2) Pneumonia: Status: Acute (3) Hypoxia: Status: Acute (4) Influenza A: Status: Acute (5) Pleurisy with effusion: Status: Acute Reason for Visit Reason for Visit Chest pains Hospital Course Hospital Course Mian Taylor is a 46 year old male with a past medical history of hyperlipidemia, who presents to [facility] due to fatigue, malaise, cough since Friday.? 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 He presented to another ER where he tested positive for flu a discharged without any medications.? However he continued to have shortness of breath, chest pain, pleurisy, pain with taking deep breath in, fatigue, malaise, poor appetite. Patient was admitted to [facility] for influenza A, treated bacterial pneumonia with parapneumonic effusion. Received broad-spectrum antibiotic therapy, urine back to antigens were negative, blood sugar cultures have been negative, sputum cultures do show heavy growth of gram-positive and gram- negative's. Ultrasound of patient's left parapneumonic effusion, was it was very small, few levels of internal echoes indicating debris. Patient's pleural effusion was too small to go after, he was monitored for the next 24 hours, he over clinically improved, his fever trend improved, his right-sided pleurisy improved. However 04/12/2020, patient began to become more short of breath, he is ox requirements increased, to 40% BiPAP, alert oriented x3, moving to ICU, repeat chest x-ray shows large right pleural effusion with consolidation. He received chest vest therapy, antibiotic therapy was broadened to vancomycin, Zosyn. My concern is is that this right pleural effusion is an empyema will require drainage, chest tube, tPA, CT surgery evaluation. In addition he will require pulmonary evaluation and possible bronchoscopy based on clinical progress. After discussing the risks and benefits of transfer, patient's family voiced understanding, all questions answered, agreed to be transferred. Patient was accepted at [facility], transferred on BiPAP Physical Exam Const: COMMON NORMALS: no acute distress and patient oriented x3 Resp: COMMON NORMALS: normal respiratory effort, No retractions and No use of accessory muscles OTHER: Decreased breath sounds in right lung muñoz Cardio: COMMON NORMALS: regular rate, regular rhythm, S1 normal heart sound present and S2 normal heart sound present RATE: regular rate RHYTHM: regular rhythm HEART SOUNDS: S1 normal heart sound present and S2 normal heart sound present GI: COMMON NORMALS: Normal to inspection, nondistended, normoactive bowel sounds present and non-tender Extremity: COMMON NORMALS: no pedal edema Neuro: COMMON NORMALS: patient oriented x3 Psych: COMMON NORMALS: mental status grossly normal TS Data Studies Completed and Pending Pending at discharge Category Date Time Status Albumin Body Fluid Routine Lab 04/12/22 07:29 Ordered Amylase Pleural Fluid Routine Lab 04/12/22 07:29 Ordered Basic Metabolic Panel AM LABS Lab 04/13/22 04:00 Ordered Basic Metabolic Panel AM LABS Lab 04/14/22 04:00 Ordered Blood Culture Stat Lab 04/10/22 14:26 Results Body Fluid Analysis Routine Lab 04/12/22 07:29 Ordered Body Fluid Culture & GS Routine Lab 04/12/22 07:29 Ordered C Reactive Protein AM LABS Lab 04/13/22 04:00 Ordered C Reactive Protein AM LABS Lab 04/14/22 04:00 Ordered COVID OZH [Coronavirus PCR] Stat Lab 04/12/22 07:35 Uncollected Complete Blood Count w/Auto AM LABS Lab 04/13/22 04:00 Ordered Complete Blood Count w/Auto AM LABS Lab 04/14/22 04:00 Ordered Creatinine Body Fluid Routine Lab 04/12/22 07:29 Ordered Cyto Order Verification Routine Lab 04/12/22 07:29 Ordered Glucose Pleural Fluid Routine Lab 04/12/22 07:29 Ordered Hematocrit Body Fluid Routine Lab 04/12/22 07:29 Ordered LDH Pleural Fluid Routine Lab 04/12/22 07:29 Ordered MRSA by PCR Stat Lab 04/11/22 23:16 Received Mycobacteria, Culture w/Fluor Routine Lab 04/12/22 07:29 Ordered Procalcitonin AM LABS Lab 04/13/22 04:00 Ordered Procalcitonin AM LABS Lab 04/14/22 04:00 Ordered Sputum Culture and Gram Stain Stat Lab 04/10/22 22:55 Results Total Protein Pleural Fluid Routine Lab 04/12/22 07:29 Ordered Triglycerides, Pleural Fluid Routine Lab 04/12/22 07:29 Ordered Vancomycin Trough Timed Lab 04/13/22 10:00 Ordered pH Pleural Fluid Routine Lab 04/12/22 07:29 Ordered Cytology [PTH] Routine Pth 04/12/22 07:29 Ordered US thoracentesis [id number] Routine Ultrasound 04/12/22 06:00 Ordered Labs from last 24 hours 04/12/22 04/12/22 04/12/22 01:40 01:40 01:40 WBC 14.4 H RBC 4.48 Hgb 13.0 Hct 40.1 L MCV 89.5 MCH 29.0 MCHC 32.4 RDW 13.2 Plt Count 179 MPV 11.0 H Neut % (Auto) 86.6 Lymph % (Auto) 8.4 [place] % (Auto) 4.6 Eos % (Auto) 0.0 Baso % (Auto) 0.1 Neut # (Auto) 12.45 H Lymph # (Auto) 1.2 [place] # (Auto) 0.7 Eos # (Auto) 0.0 Baso # (Auto) 0.0 Nucleated RBC % (auto) 0 Nucleated RBCs # 0.0 PT INR Specimen Type Sample Site ABG pH ABG pCO2 ABG pO2 ABG HCO3 ABG O2 Saturation ABG Base Excess Servando Test A-a O2 Gradient Hematocrit Hgb O2 Saturation Carboxyhemoglobin Methemoglobin Total Hemoglobin Sodium 133 L Potassium 4.4 Glucose 111 Ionized Calcium O2 Delivery Device O2 Liters/Min Search Engine Optimization Specialist ID Chloride 96 L Carbon Dioxide 25 Anion Gap 16.4 BUN 22 H Creatinine 1.1 GFR Calculation 71.4 L Calculated Osmolality 280 L Calcium 8.5 C-Reactive Protein 432.2 H Procalcitonin 6.36 H 04/12/22 04/11/22 01:40 20:58 WBC RBC Hgb Hct MCV MCH MCHC RDW Plt Count MPV Neut % (Auto) Lymph % (Auto) [place] % (Auto) Eos % (Auto) Baso % (Auto) Neut # (Auto) Lymph # (Auto) [place] # (Auto) Eos # (Auto) Baso # (Auto) Nucleated RBC % (auto) Nucleated RBCs # PT 15.00 H INR 1.15 Specimen Type Arterial Sample Site Radial, right ABG pH 7.47 H ABG pCO2 33.1 L ABG pO2 79.5 L ABG HCO3 24.1 ABG O2 Saturation 97.4 ABG Base Excess 1.1 Servando Test Pos A-a O2 Gradient 3.9 L Hematocrit 42.9 Hgb O2 Saturation 95.9 Carboxyhemoglobin 0.9 Methemoglobin 0.6 Total Hemoglobin 14.0 Sodium 130.0 L Potassium 3.8 Glucose 110.0 Ionized Calcium 1.1 O2 Delivery Device Nc O2 Liters/Min 4.0 Search Engine Optimization Specialist ID Charlie Chloride Carbon Dioxide Anion Gap BUN Creatinine GFR Calculation Calculated Osmolality Calcium C-Reactive Protein Procalcitonin Completed Studies During Hospitalization Category Date Time Status CTA chest [CT angio chest PE protcl 31373] Stat Cat Scan 04/10/22 11:50 Completed CXRP [XR chest 1V portable [id number]] Routine Exams 04/12/22 06:00 Completed XR chest 1V portable [id number] Stat Exams 04/10/22 11:08 Completed XR chest 1V portable [id number] Stat Exams 04/11/22 20:36 Completed [place] chest [id number] Stat Ultrasound 04/10/22 15:15 Completed Laboratory Last Values WBC 14.4 10^3/uL (4.0-10.0) H 04/12/22 01:40 RBC 4.48 10^6/uL (4.1-5.3) 04/12/22 01:40 Hgb 13.0 g/dL (11.7-16.6) 04/12/22 01:40 Hct 40.1 % (42.0-52.0) L 04/12/22 01:40 MCV 89.5 fl (80-94) 04/12/22 01:40 MCH 29.0 pg (28.0-34.0) 04/12/22 01:40 MCHC 32.4 g/dL (30.0-36.0) 04/12/22 01:40 RDW 13.2 % (12.1-15.1) 04/12/22 01:40 Plt Count 179 10^3/cmm (130-400) 04/12/22 01:40 MPV 11.0 fL (7.4-10.4) H 04/12/22 01:40 Neut % (Auto) 86.6 % 04/12/22 01:40 Lymph % (Auto) 8.4 % 04/12/22 01:40 [place] % (Auto) 4.6 % 04/12/22 01:40 Eos % (Auto) 0.0 % 04/12/22 01:40 Baso % (Auto) 0.1 % 04/12/22 01:40 Neut # (Auto) 12.45 10^3/uL (1.8-7.7) H 04/12/22 01:40 Lymph # (Auto) 1.2 10^3/uL (0.8-4.8) 04/12/22 01:40 [place] # (Auto) 0.7 10^3/uL (0.2-0.9) 04/12/22 01:40 Eos # (Auto) 0.0 10^3/uL (0.0-0.8) 04/12/22 01:40 Baso # (Auto) 0.0 10^3/uL (0.0-0.1) 04/12/22 01:40 Nucleated RBC % (auto) 0 % 04/12/22 01:40 Nucleated RBCs # 0.0 /100WBC 04/12/22 01:40 ESR 14 mm/hr (0-10) H 04/10/22 11:05 PT 15.00 SECONDS (12.1-14.9) H 04/12/22 01:40 INR 1.15 (0.8-1.2) 04/12/22 01:40 D-Dimer 1.02 ug/mIFEU (0-0.59) H 04/10/22 11:05 Specimen Type Arterial 04/11/22 20:58 Sample Site Radial, right 04/11/22 20:58 ABG pH 7.47 (7.35-7.45) H 04/11/22 20:58 ABG pCO2 33.1 mmHg (35-45) L 04/11/22 20:58 ABG pO2 79.5 mmHg (80.0-100.0) L 04/11/22 20:58 ABG HCO3 24.1 mmol/L (22-26) 04/11/22 20:58 ABG O2 Saturation 97.4 04/11/22 20:58 ABG Base Excess 1.1 mmol/L (-2.0-2.0) 04/11/22 20:58 Servando Test Pos 04/11/22 20:58 A-a O2 Gradient 3.9 mmHg (5-10) L 04/11/22 20:58 Hematocrit 42.9 % (42-52) 04/11/22 20:58 Hgb O2 Saturation 95.9 % (95-100) 04/11/22 20:58 Carboxyhemoglobin 0.9 %THgb (0.4-20.1) 04/11/22 20:58 Methemoglobin 0.6 % (0.4-1.5) 04/11/22 20:58 Total Hemoglobin 14.0 g/dL (14-18) 04/11/22 20:58 Sodium 130.0 mmol/L (131-143) L 04/11/22 20:58 Potassium 3.8 mmol/L (3.5-5.0) 04/11/22 20:58 Glucose 110.0 mg/dL (70-115) 04/11/22 20:58 Ionized Calcium 1.1 mmol/L (1.1-1.4) 04/11/22 20:58 O2 Delivery Device Nc 04/11/22 20:58 O2 Liters/Min 4.0 % 04/11/22 20:58 Search Engine Optimization Specialist ID Charlie 04/11/22 20:58 Sodium 133 mmol/L (136-145) L 04/12/22 01:40 Potassium 4.4 mmol/L (3.5-5.1) 04/12/22 01:40 Chloride 96 mmol/L (98-107) L 04/12/22 01:40 Carbon Dioxide 25 mmol/L (22-29) 04/12/22 01:40 Anion Gap 16.4 (5-19) 04/12/22 01:40 BUN 22 mg/dL (6-20) H 04/12/22 01:40 Creatinine 1.1 mg/dL (0.7-1.2) 04/12/22 01:40 GFR Calculation 71.4 mL/min (90-130) L 04/12/22 01:40 Glucose 111 mg/dL (65-115) 04/12/22 01:40 Estimat Average Glucose 94 04/10/22 11:05 Hemoglobin A1c 4.9 % (4.0-6.0) 04/10/22 11:05 Calculated Osmolality 280 mOsm/kg (285-295) L 04/12/22 01:40 Lactic Acid 3.4 mmol/L (0.5-2.2) H 04/10/22 11:05 Lactic Acid (Sepsis) 2.6 mmol/L (0.5-2.2) H 04/10/22 16:30 Calcium 8.5 mg/dL (8.5-10.5) 04/12/22 01:40 Total Bilirubin 0.7 mg/dL (0.15-1.2) 04/10/22 11:05 AST 22 U/L (0-40) 04/10/22 11:05 ALT 23 U/L (0-41) 04/10/22 11:05 Alkaline Phosphatase 86 U/L (40-130) 04/10/22 11:05 Creatine Kinase 123 U/L (39-308) 04/10/22 11:05 Troponin T Baseline 8 ng/L (0-15) 04/10/22 11:05 Troponin T 120 Minute 8.47 ng/L (0-15) 04/10/22 13:12 Delta Troponin T 0.10 ABS# (0-10) 04/10/22 13:12 Troponin T Hi Sens 6Hr 10.02 ng/L (0-15) 04/10/22 16:30 Troponin T Hi Sens 6Hr Delta 2.02 ng/L (0-12) 04/10/22 16:30 C-Reactive Protein 432.2 mg/L (0.0-4.9) H 04/12/22 01:40 NT-Pro-B Natriuret Pep 461 pg/mL (0-125) H 04/10/22 11:05 Total Protein 6.9 g/dL (6.6-8.7) 04/10/22 11:05 Albumin 4.2 g/dL (3.5-5.2) 04/10/22 11:05 Globulin 2.7 g/dL (1.3-4.6) 04/10/22 11:05 Lipase 22 U/L (13-60) 04/10/22 11:05 Procalcitonin 6.36 ng/mL (0-0.5) H 04/12/22 01:40 TSH 0.87 uIU/mL (0.27-4.20) 04/10/22 11:05 Urine Color Yellow (Yellow) 04/10/22 13:30 Urine Appearance Clear (CLEAR) 04/10/22 13:30 Urine pH 6.5 (5-7) 04/10/22 13:30 Ur Specific Weed 1.005 (1.005-1.030) 04/10/22 13:30 Urine Protein 1+ (Negative) H 04/10/22 13:30 Urine Glucose (UA) Norm (Normal) 04/10/22 13:30 Urine Ketones 1+ (Negative) H 04/10/22 13:30 Urine Blood Trace (Negative) H 04/10/22 13:30 Urine Nitrate Negative (Negative) 04/10/22 13:30 Urine Bilirubin 1+ (Negative) H 04/10/22 13:30 Urine Urobilinogen Norm mg/dL (Negative) 04/10/22 13:30 Ur Leukocyte Esterase Trace (Negative) H 04/10/22 13:30 Urine RBC 0-4 /hpf (0-2) H 04/10/22 13:30 Urine WBC 0-4 /hpf (0-5) H 04/10/22 13:30 Ur Squamous Epith Cells 0-4 /hpf (0-5) H 04/10/22 13:30 Amorphous Sediment Not Reportable 04/10/22 13:30 Urine Bacteria None /hpf (NONE) 04/10/22 13:30 Coronavirus 229E (PCR) Not detected (NOT DETECT) 04/10/22 13:50 Influenza Type A Ag positive (Negative) 04/10/22 14:45 Influenza Type B Ag negative (Negative) 04/10/22 14:45 SARS-CoV-2 (PCR) Not detected (NOT DETECT) 04/10/22 13:50 Radiology Impressions Chest CTA 04/10/22 11:50 IMPRESSION: 1. No evidence of pulmonary embolus. 2. Small RIGHT pleural effusion with patchy nodular infiltrates in the RIGHT lower lobe and RIGHT upper lobe suspicious for pneumonia. 3. No other acute findings. Chest Ultrasound 04/10/22 15:15 IMPRESSION: Very small RIGHT pleural effusion. Chest X-Ray 04/12/22 06:00 IMPRESSION: 1. Extensive, worsening opacity in the right chest likely reflecting consolidation and effusion. 2. Minimal left basilar opacity with probable small left pleural effusion. Recent Clincial Data Last Vital Signs Temp 99 F 04/12/22 06:30 Pulse 96 04/12/22 06:30 Resp 26 H 04/12/22 06:30 BP 106/71 04/12/22 06:30 Pulse Ox 96 04/12/22 06:30 O2 Del Method 04/12/22 06:00 O2 Flow Rate 4 04/11/22 20:00 FiO2 40 04/12/22 06:00 Vital Signs Temp Pulse Resp BP Pulse Ox O2 Del Method O2 Flow Rate 04/12/22 06:30 99 F 96 26 H 106/71 96 04/12/22 06:00 92 38 H 106/71 95 BiPAP 04/12/22 05:30 94 33 H 100/66 95 04/12/22 05:55 100 96 04/12/22 05:52 93 04/12/22 05:00 102 H 27 H 100/66 95 04/12/22 04:30 103 H 21 H 105/70 94 04/12/22 04:00 100.3 F H 106 H 20 H 105/70 94 BiPAP 04/12/22 03:30 108 H 28 H 119/85 95 04/12/22 03:00 113 H 30 H 119/85 94 04/12/22 02:30 104 H 25 H 111/75 96 04/12/22 03:22 103 H 96 04/12/22 03:21 101 H 25 H 98 BiPAP 04/12/22 03:06 26 H 94 04/12/22 02:00 96 24 H 111/75 97 BiPAP 04/12/22 01:30 101 H 26 H 118/70 97 04/12/22 01:00 103 H 15 110/75 96 04/12/22 00:30 103 H 18 106/71 96 04/12/22 00:15 102 H 23 H 111/72 97 04/12/22 00:00 99 21 H 112/73 97 BiPAP 04/11/22 23:45 112 H 29 H 128/83 97 04/12/22 00:00 04/11/22 23:30 99.6 F 104 H 27 H 111/80 96 BiPAP 04/11/22 23:15 100 21 H 112/77 96 04/11/22 23:00 100 25 H 107/75 97 04/11/22 22:45 105 H 29 H 111/73 96 04/11/22 22:30 101 H 28 H 111/73 95 04/11/22 22:15 103 H 23 H 111/73 95 04/11/22 22:00 108 H 25 H 111/73 95 BiPAP 04/11/22 21:45 92 04/11/22 21:38 91 04/11/22 22:00 109 H 04/11/22 20:00 99.3 F 103 H 30 H 122/74 90 Nasal Cannula 04/11/22 22:19 BiPAP 04/11/22 21:45 105 H 92 04/11/22 23:17 102 H 29 H 97 BiPAP 04/11/22 23:17 101 H 97 04/11/22 21:42 92 BiPAP 04/11/22 20:00 4 04/11/22 20:00 98 28 H 92 Nasal Cannula 4 FiO2 04/12/22 06:30 04/12/22 06:00 40 04/12/22 05:30 04/12/22 05:55 40 04/12/22 05:52 04/12/22 05:00 04/12/22 04:30 04/12/22 04:00 40 04/12/22 03:30 04/12/22 03:00 04/12/22 02:30 04/12/22 03:22 40 04/12/22 03:21 40 04/12/22 03:06 04/12/22 02:00 40 04/12/22 01:30 04/12/22 01:00 04/12/22 00:30 04/12/22 00:15 04/12/22 00:00 40 04/11/22 23:45 04/12/22 00:00 40 04/11/22 23:30 40 04/11/22 23:15 04/11/22 23:00 04/11/22 22:45 04/11/22 22:30 04/11/22 22:15 04/11/22 22:00 40 04/11/22 21:45 04/11/22 21:38 04/11/22 22:00 04/11/22 20:00 04/11/22 22:19 04/11/22 21:45 40 04/11/22 23:17 40 04/11/22 23:17 40 04/11/22 21:42 40 04/11/22 20:00 04/11/22 20:00 Intake & Output/Weight 04/10/22 04/11/22 04/12/22 04/13/22 06:59 06:59 06:59 06:59 Intake Total 2140 / 2140 2045.833 / 2045.833 Output Total 250 / 250 1050 / 1050 Balance 1890 / 1890 995.833 / 995.833 Weight 90.718 kg 91.172 kg Vitals Last Vital Signs Temp 99 F 04/12/22 06:30 Pulse 96 04/12/22 06:30 Resp 26 H 04/12/22 06:30 BP 106/71 04/12/22 06:30 Pulse Ox 96 04/12/22 06:30 O2 Del Method 04/12/22 06:00 O2 Flow Rate 4 04/11/22 20:00 FiO2 40 04/12/22 06:00 TS Medications Medications Acetaminophen (Acetaminophen 325 Mg Tablet) 650 mg PO Q6H PRN PRN Reason: Mild/Mod Pain Or Temp >/= 101 Last Admin: 04/11/22 04:34 Dose: 650 mg Acetylcysteine (Acetylcysteine 200 Mg/Ml Sdv 4 Ml) 200 mg INHALATION Q4H.RESPIRATORY SHAY Last Admin: 04/12/22 03:21 Dose: 200 mg Albuterol/Ipratropium (Ipratropium-Albuterol 3 Ml Neb) 3 ml INHALATION QID.RESPIRATORY SHAY Last Admin: 04/11/22 20:11 Dose: 3 ml Albuterol/Ipratropium (Ipratropium-Albuterol 3 Ml Neb) 3 ml INHALATION Q4H PRN PRN Reason: SHORTNESS OF BREATH Last Admin: 04/12/22 03:21 Dose: 3 ml Enoxaparin Sodium (Enoxaparin 40 Mg/0.4 Ml Syringe) 40 mg SUBCUT Q24H SHAY Last Admin: 04/11/22 17:01 Dose: 40 mg Sodium Chloride (Sodium Chloride 0.9%) 1,000 mls @ 50 mls/hr IV .Q20H SHAY Last Admin: 04/11/22 22:12 Dose: 50 mls/hr Vancomycin/PEG/NADA/Lysine/Water (Vancocin) 1,500 mg in 300 mls @ 200 mls/hr IV Q12H SHAY Last Infusion: 04/12/22 00:54 Dose: Infused Piperacillin Sod/Tazobactam (Sod 3.375 gm/ Sodium Chloride) 50 mls @ 12.5 mls/hr IV Q8H SHAY; Protocol Ondansetron HCl (Ondansetron 2 Mg/Ml Sdv 2 Ml) 4 mg IVP Q8H PRN PRN Reason: vomiting, or N/V if npo Oseltamivir Phosphate (Oseltamivir Phosphate 75 Mg Capsule) 75 mg PO Q12H SHAY Last Admin: 04/12/22 04:12 Dose: 75 mg Oxycodone/Acetaminophen (Oxycodone-Apap 5-325 Mg Tablet) 1 tab PO Q8H PRN PRN Reason: MODERATE PAIN Last Admin: 04/12/22 03:06 Dose: 1 tab Pantoprazole Sodium (Pantoprazole 40 Mg Sdv) 40 mg IVP Q24H SHAY Last Admin: 04/11/22 17:01 Dose: 40 mg Discontinued Medications Acetaminophen (Acetaminophen 500 Mg Tablet) 1,000 mg PO ONCE ONE Stop: 04/10/22 12:10 Last Admin: 04/10/22 12:30 Dose: 1,000 mg Aspirin (Aspirin 81 Mg Chew Tablet) 324 mg PO NOW ONE Stop: 04/10/22 11:09 Last Admin: 04/10/22 11:18 Dose: 324 mg Sodium Chloride (Sodium Chloride 0.9%) 1,000 mls @ 999 mls/hr IV .Q1H1M ONE Stop: 04/10/22 12:08 Last Infusion: 04/10/22 12:24 Dose: Infused Ceftriaxone Sodium 1,000 mg/ (Sodium Chloride) 50 mls @ 100 mls/hr IV ONCE ONE; Protocol Stop: 04/10/22 14:04 Last Infusion: 04/10/22 15:12 Dose: Infused Doxycycline Hyclate 100 mg/ (Sodium Chloride) 100 mls @ 100 mls/hr IV ONCE ONE; Protocol Stop: 04/10/22 14:34 Last Infusion: 04/10/22 15:40 Dose: Infused Ceftriaxone Sodium 1,000 mg/ (Sodium Chloride) 50 mls @ 100 mls/hr IV Q24H SHAY; Protocol Last Infusion: 04/11/22 17:42 Dose: Infused Azithromycin 500 mg/ Sodium (Chloride) 250 mls @ 250 mls/hr IV Q24H [facility]; Protocol Last Infusion: 04/11/22 18:02 Dose: Infused Vancomycin HCl / Sodium (Chloride) 250 mls @ 0 mls/hr [id number] PROTOCOL SHAY; Protocol Iohexol (Iohexol 350 Mg/Ml 500 Ml Btl (Per Ml)) 0 ml IV ONCE ONE Stop: 04/10/22 12:29 Last Admin: 04/10/22 12:29 Dose: 95 ml Iohexol (Iohexol 350 Mg/Ml 500 Ml Btl (Per Ml)) 95 ml .ROUTE .STK-MED ONE Stop: 04/11/22 08:51 Ketorolac Tromethamine (Ketorolac 30 Mg/Ml Inj) 15 mg IVP ONCE ONE Stop: 04/10/22 12:10 Last Admin: 04/10/22 12:31 Dose: 15 mg Morphine Sulfate (Morphine 4 Mg/Ml Sdv 1 Ml) 4 mg IVP ONCE ONE Stop: 04/10/22 11:09 Last Admin: 04/10/22 11:19 Dose: 4 mg Morphine Sulfate (Morphine 4 Mg/Ml Sdv 1 Ml) 4 mg IVP ONCE ONE Stop: 04/10/22 14:31 Last Admin: 04/10/22 14:35 Dose: 4 mg Ondansetron HCl (Ondansetron 2 Mg/Ml Sdv 2 Ml) 4 mg IVP ONCE ONE Stop: 04/10/22 11:09 Last Admin: 04/10/22 11:19 Dose: 4 mg Allergies No Known Allergies Allergy (Verified 04/10/22 11:28) Home Medications rosuvastatin 10 mg tablet 10 mg PO QPM 04/10/22 [History Confirmed 04/10/22] Discharge Plan Discharge Patient Disposition: Home Condition: Stable Prescriptions: No Action rosuvastatin 10 mg tablet 10 mg PO QPM Referrals: Kasia Anderson MD [Primary Care Provider] - Patient Instructions: Opioid Safety Transfer Attestations Time Spent in Transfer Care: greater than 30 min Quality Metrics Clinical Quality Measures [ No reported AMI, CVA or VTE this stay] Coding Level of Care Code Acute Joint Sealer for Chg Fwd Diagnoses Parapneumonic effusion J18.9; J91.8 Pneumonia J18.9 Hypoxia R09.02 Influenza A J10.1 Pleurisy with effusion J90
[2022-04-12] MEDS: piperacillin-tazobactam 3.375 GM in sodium chloride 0.9% (plus) 50 ML IV (08:05)
[2022-04-12 08:27] LABS: SARS Covid-2 Antigen negative (Negative)
--- NOTE | 2022-04-12 09:30 | PC.NURSE ---
family aware of status and effusion lung talked with doctor at length and transfer arranged air vac called copy chart and copy disk radiology transfer to [facility]
--- NOTE | 2022-04-12 09:54 | PC.CHAP ---
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 visit [] Patient/Family/Request visit [] Outpatient visit [] Follow-up visit [] Physician referral [] Code/Alert [x] Routine visit [] Staff referral [] Actively dying [] Patient sleeping [] Family support [] [] Out of room [] Palliative care [] [] Receiving care in room [] Pre-surgical visit [] Trauma [] Long length of stay [x] ICU visit [x] Other:isolation Relational/Emotional Strength [] Patient feels connected with others/family/visitors/staff [] Distress [] Loneliness/isolation [] Abandonment Spirituality of Patient [] Person of Lupe [] Attends Taoist of their Lupe [] Believes in Prayer [] Reads Bible or Sikhism materials [] There are Spiritual issues to be addressed Planner Interventions [] Prayer [] Active listening [] Non-anxious presence [] Spiritual/emotional support [] Crisis/trauma care [] Spiritual counseling [] Bereavement support [] Provided bereavement packet [] Provided Bible/devotional materials [] Provided toy/stuffed animal, coloring book to patient or family member [] Provided Communion [] Anointing/[place] [] Salvation [] Completed spiritual assessment [] Other: Impact on Illness or Injury [] Angry [] Fearful [] Anxious [] Often cries [] Exhaustion [] Unable to work [] Unable to attend scientologist [] Unable to walk/stand [] Unable to read [] Unable to drive [] Unable to eat/drink [] Unable to sleep [] Unable to be with family [] Patient intubated [] Other: Summary Time spent with patient
== END 2022-04-12 09:30 | disposition short-term general hospital (02) | DRG 193 ==
LOC: ER 14:46 → MEDSURG 16:47 → ICU 04-12 08:03 → MEDSURG 04-12 08:07
PROVIDERS: Student in an Organized Health Care Education/Training Program; Admitting Provider Family Medicine; Emergency Provider Emergency Medicine; PCP Family Medicine; Visit Provider Family Medicine
DX: J10.08 Influenza due to other identified influenza virus with other specified pneumonia (principal); J86.9 Pyothorax without fistula; J91.8 Pleural effusion in other conditions classified elsewhere; J98.11 Atelectasis; J15.9 Unspecified bacterial pneumonia; E78.5 Hyperlipidemia, unspecified; R09.02 Hypoxemia
CPT/HCPCS: 36415; 71045; 71275; 76604; 80048; 80051; 80053; 81001; 82330; 82550; 82805; 83036; 83605; 83690; 83880; 84145; 84443; 84484; 85025; 85378; 85610; 85651; 86140; 86403; 87040; 87070; 87205; 87426; 87635; 87641; 87804; 88108; 93005; 94640; 94660; 94664; 94669; 96365; 96367; 96372; 96375; 96376; 99285; C9113; J0456; J0696; J1650; J1885; J2270; J2405; J2543; J3370; J3490; J7030; J7050; J7608; Q9967

== ENCOUNTER → 2022-09-02 09:14 | Outpatient (BNVA) | payer OTHER, SELFPAY | PROVIDERS: PCP Family Medicine; Visit Provider Registered Nurse | DX: E78.5 Hyperlipidemia, unspecified (principal) | CPT/HCPCS: 80053; 80061; 85025 ==

== ENCOUNTER → 2023-01-10 10:25 | Outpatient (BNVA) | payer OTHER, SELFPAY | PROVIDERS: PCP Family Medicine; Visit Provider Registered Nurse | DX: E78.5 Hyperlipidemia, unspecified (principal); Z13.6 Encounter for screening for cardiovascular disorders; Z12.5 Encounter for screening for malignant neoplasm of prostate | CPT/HCPCS: 80053; 80061; G0103 ==

== ENCOUNTER → 2024-11-16 10:53 | Outpatient (BNVA) | payer OTHER, SELFPAY | PROVIDERS: PCP Family Medicine; Visit Provider Registered Nurse | DX: I10 Essential (primary) hypertension (principal) | CPT/HCPCS: 80053; 80061; 85025 ==

== ENCOUNTER 2025-05-17 05:57 | Day surgery (SDC) | payer OTHER, SELFPAY ==
[2025-05-17 06:10] VITALS: BP 107/88; PULSE 76; RESP 16; TEMP 36.1; O2SAT 97; BMI 28.8
--- NOTE | 2025-05-17 06:50 | P.ANESASSM_ITS ---
Pre-Anesthetic Assessment Height/Weight: Height 1.75 m Weight 88.451 kg Temp Pulse Resp BP Pulse Ox O2 Del Method 97.0 F L 76 16 107/88 97 Room Air 05/17/25 06:10 05/17/25 06:10 05/17/25 06:10 05/17/25 06:10 05/17/25 06:10 05/17/25 06:10 Operation Date: 05/17/25 07:00 Proposed Procedures p Colonoscopy 19220 G0121, Z12.11(Not Applicable) - Hoang Alanis MD Was Beta Brooke taken within 24 hours: N/A Was Clonidine taken within 24 hours: N/A Last intake: Intake Last Liquid Date 05/16/25 Last Liquid Time 20:00 Last Solid Date 05/15/25 Last Solid Time 19:30 Social Alcohol (socual) and No tobacco Exam alert, oriented x 3, clear to auscultation bilaterally and regular rate & rhythm Airway Submandibular: within normal limits Cervical ROM: within normal limits Mallampati: Class II Dentition: full History/ROS No significant history except as noted Pulmonary history of pneumonia , emphysema , lung surgery in 2021 no issue recently CV/HEM Hypertension diet controlled None reported GI None reported Metabolic Hyperlipidemia [facility] [place] None reported Anesthetic Plan ASA status: 2 Anesthesia: Anesthesia Evaluation and MAC Risk of > 500 ml blood loss (7ml/kg in children): No Medications/Allergies Home Medications ?Medication ?Instructions ?Recorded ?Confirmed ?Last Taken ?Type No Known Home Medications 05/11/2504/25 Unknown History Allergies Allergy/AdvReac Type Severity Reaction Status Date / Time No Known Allergies Allergy Verified 05/17/25 06:07 Current Medications Generic Name Dose Route Start Last Admin Trade Name Freq PRN Reason Stop Dose Admin Sodium Chloride 1,000 mls @ 15 mls/hr 05/17/25 06:05 05/17/25 06:26 Sodium Chloride 0.9% IV 05/18/25 06:04 15 mls/hr .Q24H PRN Administration COLONOSCOPY FLUIDS PFSH Anesthesia Medical History HLD (hyperlipidemia) Surgical History No pertinent past surgical history Family History Father Hyperlipidemia Grandmother Hyperlipidemia Hypertension Myocardial infarct Denies family history of Diabetes CAD (coronary artery disease) Clotting disorder Dementia Chronic kidney disease (CKD) Lung disease Cancer Stroke Social History Smoking and tobacco/nicotine status: never used tobacco/nicotine Alcohol intake: never Substance/Drug Use: never Adopted: No Caregiver/support person: No Lives independently: No Household members: spouse Marital status: service: No Current occupational status: employed Sexually active: Yes Do you think of yourself as: Straight/Heterosexual Current gender identity: Male
--- NOTE | 2025-05-17 07:15 | W.PM.OPSFHP ---
Same Day Surgery H&P Indication for Procedure/HPI DATE OF PROCEDURE: May 17, 2025 CHIEF COMPLAINT/INDICATIONFOR SURGICAL PROCEDURE: screening colonoscopy PREOP DIAGNOSIS: screening colonoscopy PLANNED PROCEDURE: Operation Date: 05/17/25 07:00 Proposed Procedures p Colonoscopy [id number], Z12.11(Not Applicable) - Hoang Alanis MD Medications/Allergies* Home Medications ?Medication ?Instructions ?Recorded ?Confirmed ?Type No Known Home Medications 05/11/25 05/11/25 History Allergies/Adverse Reactions Allergy/AdvReac Type Severity Reaction Status Date / Time No Known Allergies Allergy Verified 05/17/25 06:07 Current Medications: Generic Name Dose Route Start Last Admin Trade Name Freq PRN Reason Stop Dose Admin Sodium Chloride 1,000 mls @ 15 mls/hr 05/17/25 06:05 05/17/25 06:26 Sodium Chloride 0.9% IV 05/18/25 06:04 15 mls/hr .Q24H PRN Administration COLONOSCOPY FLUIDS Pertinent History/Comorbid Conditions* Medical History (Updated 04/10/22 @ 15:21 by Homero Cobos MD) HLD (hyperlipidemia) Surgical History (Updated 04/10/22 @ 11:10 by Kuldip Wooten MD) No pertinent past surgical history Family History (Updated 03/25/22 @ 08:21 by Ny Hughes LPN) Hyperlipidemia Father Grandmother Myocardial infarct Grandmother Hypertension Grandmother Denies family history of Diabetes CAD (coronary artery disease) Clotting disorder Dementia Chronic kidney disease (CKD) Lung disease Cancer Stroke Social History Smoking and tobacco/nicotine status: never used tobacco/nicotine Alcohol intake: never Substance/Drug Use: never Adopted: No Caregiver/support person: No Lives independently: No Household members: spouse Marital status: service: No Current occupational status: employed Sexually active: Yes Do you think of yourself as: Straight/Heterosexual Current gender identity: Male Pertinent Exam Findings alert, oriented x 3, clear to auscultation bilaterally, regular rate & rhythm and procedure specific exam findings abdomen soft, nt, nd Recommendations Risks and benefits of procedure reviewed and Patient/family agree to proceed Surgery/Procedure today Coding Level of Care Code Acute Code for Chg Fwd
[2025-05-17 07:38] VITALS: BP 98/65; PULSE 69; RESP 12; TEMP 36.1; O2SAT 96
[2025-05-17 08:00] VITALS: BP 113/86; PULSE 76; RESP 16; O2SAT 96
--- NOTE | 2025-05-17 11:55 | ANE.PACU2 ---
Inpatient post-anesthesia follow up: Airway intact: Yes Vital signs: Temperature 97 F Pulse Rate 76 Respiratory Rate 16 Blood Pressure 113/86 Pulse Oximetry 96 Oxygen Delivery Me thod Room Air Oxygen Flow Rate Fraction of Inspir ed Oxygen Hydration adequate: Yes Nausea and vomiting: No Pain level: 1 Mental status: Baseline
== END 2025-05-17 08:05 | disposition home or self-care (01) ==
PROVIDERS: PCP Family Medicine; Visit Provider Student in an Organized Health Care Education/Training Program
PROC: 0DJD8ZZ Inspection of Lower Intestinal Tract, Via Natural or Artificial Opening Endoscopic (ICD-10-PCS; CPT 45378; principal; 2025-05-17 07:00)
DX: Z12.11 Encounter for screening for malignant neoplasm of colon (principal); K57.30 Diverticulosis of large intestine without perforation or abscess without bleeding; K62.1 Rectal polyp; J43.9 Emphysema, unspecified; I10 Essential (primary) hypertension; E78.5 Hyperlipidemia, unspecified
CPT/HCPCS: 45380; 88305; J2704; J7030; J9999